=== PATIENT | male | born 1985 | race Hispanic/Latino ===

== ENCOUNTER 2016-08-04 11:50 | Emergency (ER) | payer BC ==
[2016-08-04 11:55] VITALS: BP 121/70; PULSE 88; RESP 19; TEMP 98.1; O2SAT 100
--- NOTE | 2016-08-04 12:30 | ED PDOC ---
Lower Extremity Pain/Injury Time Seen by Provider: 08/04/16 12:19 Chief Complaint (Nursing): Trauma Chief Complaint (Provider): Left Knee Pain History Per: Patient History/Exam Limitations: no limitations Onset/Duration Of Symptoms: Hrs Current Symptoms Are (Timing): Still Present Severity: Mild Additional Complaint(s): Patient is a 30 year old male brought in by EMS complaining of left knee pain status post fall last night. Patient reports walking down metal stairs last night and slipping. Patient's left knee twisted underneath him and he landed onto his back. Patient is unable to bear weight on the leg and took Aleeve with no relief. PMD: none - Knee Description Of Injury: Fell Currently Unable To: Bear Weight Past Medical History Reviewed: Historical Data, Nursing Documentation, Vital Signs Vital Signs: Last Vital Signs Temp 98.1 F 08/04/16 11:52 Pulse 88 08/04/16 11:52 Resp 19 08/04/16 11:52 BP 121/70 08/04/16 11:52 Pulse Ox 100 08/04/16 11:52 - Medical History PMH: No Chronic Diseases - Family History Family History: States: No Known Family Hx - Home Medications Home Medications: Ambulatory Orders Medication Instructions Recorded traMADol [Ultram] 50 mg PO Q6H PRN #20 tab 08/04/16 - Allergies Allergies/Adverse Reactions: Allergies Allergy/AdvReac Type Severity Reaction Status Date / Time No Known Allergies Allergy Verified 08/04/16 12:22 Review of Systems ROS Statement: Except As Marked, All Systems Reviewed And Found Negative Constitutional: Negative for: Fever Musculoskeletal: Positive for: Other (left knee pain). Negative for: Back Pain , Leg Pain Physical Exam - Reviewed Nursing Documentation Reviewed: Yes Vital Signs Reviewed: Yes - Physical Exam Appears: Positive for: Well, Non-toxic, No Acute Distress Head Exam: Positive for: ATRAUMATIC, NORMAL INSPECTION, NORMOCEPHALIC Skin: Positive for: Normal Color, Warm, DRY Eye Exam: Positive for: Normal appearance, EOMI Neck: Positive for: Normal, Painless ROM Respiratory: Negative for: Accessory Muscle Use, Respiratory Distress Pulses-Dorsalis Pedis (L): 2+ Pulses-Dorsalis Pedis (R): 2+ Pulses-Post. Tibialis (L): 2+ Pulses-Post. Tibialis (R): 2+ Extremity: Positive for: Tenderness ((+) tenderness distal to patella ), Swelling (to left knee), Other (sensation intact, patient unable to flex left leg at hip). Negative for: Normal ROM (limited left knee secondary to pain), Deformity Neurologic/Psych: Positive for: Alert, Oriented - ECG O2 Sat by Pulse Oximetry: 100 (RA) Pulse Ox Interpretation: Normal Medical Decision Making Medical Decision Making: Time: 12:20 Impression: 30 y/o male w/ left knee pain s/p mechanical fall Plan: CT Left Knee XR Left Knee - Ordered at 1222 and cancelled at 1227. Pt was taken to x-ray and x-ray taken at 1255. XR- patella appears proximally displaced HISTORY: Left knee injury, unable to move COMPARISON: TECHNIQUE: FINDINGS: No fracture dislocation is observed. There is no joint effusion. There is a questionable patellar tendon rupture. IMPRESSION: No fracture. Question patellar tendon rupture; correlate with physical exam. Discussed with Dr. Browne and patients information sent to him. Pt understands his staff will call him tomorrow. Scribe Attestation: Documented by Kaylie Gutierrez acting as a scribe for Mitzy Viera. Provider Attestation: All medical record entries made by the Scribe were at my direction and personally dictated by me. I have reviewed the chart and agree that the record accurately reflects my personal performance of the history, physical exam, medical decision making, and the department course for this patient. I have also personally directed, reviewed, and agree with the discharge instructions and disposition. Disposition - Clinical Impression Clinical Impression: Patellar tendon rupture - Patient ED Disposition Is Patient to be Admitted: No Counseled Patient/Family Regarding: Diagnosis, Need For Followup, Rx Given - Disposition Referrals: Gerhard Browne MD [Staff Provider] - On License Of [facility] [Outside] Disposition: Routine/Home Disposition Time: 15:59 Condition: GOOD Prescriptions: traMADol [Ultram] 50 mg PO Q6H PRN #20 tab PRN Reason: Pain Instructions: Patella Tendon Repair (GEN), Knee Immobilizer (ED), Tendon Rupture (ED) Forms: [facility] ED School/Work Excuse
--- NOTE | 2016-08-04 15:46 | CT ---
PROCEDURE: HISTORY: Left knee injury, unable to move COMPARISON: TECHNIQUE: FINDINGS: No fracture dislocation is observed. There is no joint effusion. There is a questionable patellar tendon rupture. IMPRESSION: No fracture. Question patellar tendon rupture; correlate with physical exam.
--- NOTE | 2016-08-04 16:19 | RAD ---
HISTORY: pain s/p fall COMPARISON: No prior FINDINGS: BONES: Normal. No fracture. JOINTS: Normal. No osteoarthritis. SOFT TISSUE: Normal. OTHER FINDINGS: None . IMPRESSION: Normal Bone Xray.
== END 2016-08-04 16:21 | disposition home or self-care (01) ==
LOC: H.ER 11:50
DX: S86.812A Strain of other muscle(s) and tendon(s) at lower leg level, left leg, initial encounter (principal); W10.9XXA Fall (on) (from) unspecified stairs and steps, initial encounter; Y92.89 Other specified places as the place of occurrence of the external cause